=== PATIENT | female | born 1995 | race Caucasian/White ===

== ENCOUNTER 2023-02-16 20:34 | Emergency (ER) | payer OTHER ==
[2023-02-16 20:41] VITALS: BP 129/80; PULSE 98; RESP 18; TEMP 98.7; BMI 30.9
[2023-02-16] MEDS ORDERED: ACETAMINOPHEN 325 MG TABLET (FP) PO ONE (22:11)
[2023-02-16] MEDS ORDERED: IBUPROFEN 400 MG TABLET (FP) PO ONE (22:11)
== END 2023-02-17 00:10 | disposition home or self-care (01) ==
LOC: JERFT 20:34 → JER 20:34 → JERFT 02-17 00:10
DX: S93.402A Sprain of unspecified ligament of left ankle, initial encounter (principal); M25.572 Pain in left ankle and joints of left foot; M79.672 Pain in left foot; X50.9XXA Other and unspecified overexertion or strenuous movements or postures, initial encounter; Y93.56 Activity, jumping rope; Y92.009 Unspecified place in unspecified non-institutional (private) residence as the place of occurrence of the external cause
CPT/HCPCS: 73610-TC-LT-FY; 73630-TC-LT; 99283-25